=== PATIENT | female | born 1955 | race Caucasian/White ===

== ENCOUNTER → 2019-03-12 | Outpatient (CLI) | payer OTHER ==
[~2019-03-12] MED LIST: Aspirin EC81 MG PO; BELBUCA300 MCG PO; Calcium + Vita1 EACH PO; Cymbalta60 MG PO; DICL25ER PO; DOCU100 PO; EZET10 PO; Elidel30 GM; Erythromycin250 MG PO; HYDR1TAB94 PO; LORA1 PO; Multiple Vitam1 EAC1 PO; PENNSAID112 GM; QNASL8.7 GM INH; SOMA250 MG PO; VITAMIN D35000 UNIT PO; Ventolin5 MG/1 ML INH
[2019-03-12 19:59] LABS: U Amphetamine Screen Not Detected; U Barbituate Screen Not Detected; U Benzodiazapine Screen Not Detected; U Buprenorphine Screen Not Detected; U Cannabinoids Screen Not Detected; U Cocaine Screen Not Detected; U Methadone Screen Not Detected; U Methamphetamine Screen Not Detected; U Opiates Screen DETECTED; U Oxycodone Screen Not Detected; U Phencyclidine Screen Not Detected; U Propoxyphene Screen Not Detected
== END ==
LOC: LAB 16:00 → LAB SHORT 16:00
PROVIDERS: Family Medicine
DX: Z51.81 Encounter for therapeutic drug level monitoring (principal); Z79.899 Other long term (current) drug therapy
CPT/HCPCS: G0480

== ENCOUNTER → 2023-11-22 | Outpatient (CLI) | payer MEDICARE ==
[~2023-11-22] MED LIST changes: +ATOR10 PO
== END | disposition home or self-care (01) ==
LOC: LAB 15:03 → LAB SHORT 15:03
DX: L82.1 Other seborrheic keratosis (principal); B88.0 Other acariasis
CPT/HCPCS: 88305